=== PATIENT | female | born 1990 | race Caucasian/White ===

== ENCOUNTER → 2019-05-28 | Outpatient (CLI) | payer OTHER ==
--- NOTE | 2019-05-28 15:10 | RADIOLOGY REPORT (SQ) ---
EXAM DESCRIPTION: U/S OB 14+ TRNABD 1GES W/O DOP COMPLETED DATE/TIME: 05/28/2019 2:54 pm REASON FOR STUDY: ANATOMY SCAN COMPARISON: None. TECHNIQUE: Static and Dynamic grayscale imaging performed of gravid uterus using transabdominal appr oac. Additional selected color Doppler and spectral images recorded. All stored on PACS. LIMITATIONS: None. FINDINGS: FETUSES SEEN:1 EGA: 18 week 4 day. Calculated using BPD,FL,HC,AC documented on images. No discrepancy with clinical dates. ROXY: 10/25/2019. LANDON: 10.2 cm. PLACENTA: Posterior. Grade 0. PRESENTATION: Cephalic. ANATOMY: HEART RATE: 153 beats per minute. FOUR CHAMBER HEART: Suboptimal visualization. THREE VESSEL CORD: Yes. CORD INSERTION: Visualized. KIDNEYS AND BLADDER: Suboptimal visualization of the kidneys. STOMACH: Visualized. Appears normal. SPINE: Suboptimal visualization. BRAIN AND LATERAL VENTRICLES: Lateral ventricles not seen. Normal brain as visualized. OTHER: No other significant finding. MATERNAL ADNEXA: Maternal ovaries not visualized. CERVICAL LENGTH: 3.5 cm. Closed. OTHER: No other significant finding. IMPRESSION: LIVING INTRAUTERINE . ESTIMATED GESTATIONAL AGE 18 WEEK 4 DAY. NO VISUALIZED ANOMALIES. SUBOPTIMAL VISUALIZATION OF PORTIONS OF THE ANATOMY DUE TO THE SMALL SIZE. Trimester of : Second trimester - 13 weeks 1 day to 27 weeks 6 days. TECHNICAL DOCUMENTATION: JOB ID: [id number]- All Rights Reserved Reading location - IP/workstation name: [email or web address]
== END ==
LOC: RAD 12:35
PROVIDERS: ATTEND Obstetrics & Gynecology
DX: Z34.92 Encounter for supervision of normal pregnancy, unspecified, second trimester (principal); Z3A.18 18 weeks gestation of pregnancy
CPT/HCPCS: 76805